=== PATIENT | female | born 1995 | race Caucasian/White ===

== ENCOUNTER 2016-09-17 17:13 | Emergency (ER) | payer OTHER ==
[2016-09-17 22:41] LABS: HEMOGLOBIN 14.5 gm/dl (12.3-15.3); RED BLOOD COUNT 4.94 M/UL (4.00-5.10); WHITE BLOOD COUNT 8.1 K/UL (4.5-11.0)
[2016-09-17 22:57] LABS: BUN/CREATININE RATIO 22 (0-10)
== END 2016-09-18 00:58 | disposition home or self-care (01) ==
LOC: ER1 17:13
PROVIDERS: Physician Assistant
DX: N12 Tubulo-interstitial nephritis, not specified as acute or chronic (principal); Z88.1 Allergy status to other antibiotic agents; Z88.2 Allergy status to sulfonamides
CPT/HCPCS: 36415; 80053; 81001; 84703; 85025; 87086; 96374; 96375; 96376; 99284; J2270; J2405; J7030

== ENCOUNTER 2020-08-02 13:00 | Emergency (ER) | payer OTHER ==
[~2020-08-02 13:00] MED LIST: IBU600 MG PO; LEVAQUIN750 MG PO; LODINE CAP 300300 MG PO; MACROBID 100 M100 MG PO; ZOFRAN ODT 4 MG4 MG PO; ZOFRAN4 MG PO
[2020-08-02] MEDS ORDERED: MACROBID 100 M100 MG PO (15:37)
[2020-08-02] MEDS ORDERED: PYRIDIUM200 MG PO (15:37)
== END 2020-08-02 15:45 | disposition home or self-care (01) ==
LOC: ER1 13:00
DX: N39.0 Urinary tract infection, site not specified (principal); Z88.2 Allergy status to sulfonamides; F17.210 Nicotine dependence, cigarettes, uncomplicated
CPT/HCPCS: 81001; 84703; 87077; 87086; 87186; 99284